=== PATIENT | male | born 1955 | race African-American/Black ===

== ENCOUNTER 2017-07-15 08:45 | Inpatient (IN) | payer BC, OTHER ==
[2017-07-15 09:19] VITALS: BMI 30.2
--- NOTE | 2017-07-17 14:48 | HP ---
DATE OF ADMISSION: 07/21/2017 HISTORY OF PRESENT ILLNESS: The patient is a 62-year-old male with one history of progressive left h ip and groin pain without injury. The pain is worse with ambulation and radiates towards his knee, p artial relief with Meloxicam. The pain is now interfering with day-to-day activities including walki ng, getting dressed, and working as a regional refrigerated cdl truck driver for [employer]. PAST MEDICAL HISTORY: The patient is otherwise in good health, has a history of hypertension and angel betes and previous gout. CURRENT MEDICATIONS: Include allopurinol, losartan, doxazosin, Meloxicam. ALLERGIES: He has no known allergies. FAMILY HISTORY/SOCIAL HISTORY/REVIEW OF SYSTEMS: Otherwise unremarkable. Patient does have degenera tive arthritis of his left knee, but these symptoms are not nearly as severe as his left hip. PHYSICAL EXAMINATION: GENERAL: Reveals a healthy male. HEENT: Unremarkable. NECK: Supple. CHEST: Clear. HEART: Regular rate and rhythm. ABDOMEN: Soft, nontender. RECTAL/GENITAL EXAMS: Deferred. EXTREMITIES: Pertinent findings related to the left hip. There is tenderness in the anterior left h ip and left groin. There are no masses. There is a left antalgic gait. Leg lengths are equal. The re is decreased range of motion of the left hip and groin pain with internal rotation. Neurovascular exam is intact. Straight leg raising is negative. LABORATORY AND X-RAY FINDINGS: X-rays of the left hip reveal severe DJD with no joint space remainin g with acetabular cyst formation with marked changes from previous x-rays. There are bopivvcs-ik-zio ere changes in the right hip with only slight joint space remaining. IMPRESSION: Degenerative arthritis, both hips, left greater than right. PLAN: Left total hip replacement. He may ultimately require a staged right total hip replacement. The nature of the surgery, length of recovery, and potential complications such as infection, loss of motion, incomplete relief, neurovascular injury, thromboembolic phenomenon, leg length discrepancy, possible transfusion, and need for revision have been discussed in detail.
[2017-07-21] MEDS ORDERED: Tranexamic Acid 1,000 MG/100 ML BAG ONE ×2 (05:57→11:13)
[2017-07-21] MEDS ORDERED: CEFAZOLIN/Water 2 GM/20 ML SYRINGE ONE (05:57)
[2017-07-21] MEDS ORDERED: Vancomycin HCl 1.5 GM in Sodium Chloride 0.9% 250 ML 300 ML IVPB SCH ×2 (06:00→18:00)
[2017-07-21] MEDS ORDERED: Midazolam HCl 2 mg/2 ml Vial ONE (06:18)
[2017-07-21] MEDS ORDERED: Fentanyl 100 MCG/2 ML VIAL ONE ×2 (06:18→06:51)
[2017-07-21] MEDS ORDERED: Ropivacaine 0.2% HCl/PF 20 ML ONE (06:50)
[2017-07-21] MEDS ORDERED: HYDROcodone/Acetaminophen 10/325 mg Tablet PO PRN ×4 (07:12→09:49)
[2017-07-21] MEDS ORDERED: diphenhydrAMINE 25 MG CAP PO PRN ×2 (07:15→09:49)
[2017-07-21] MEDS ORDERED: Promethazine HCl 25 MG SUPP PR PRN (07:15)
[2017-07-21] MEDS ORDERED: traMADol HCl 50 MG TAB PO PRN ×3 (07:15→09:49)
[2017-07-21] MEDS ORDERED: Naloxone HCl 0.4 mg/ml Vial IV PRN (07:15)
[2017-07-21] MEDS ORDERED: diphenhydrAMINE 50 MG/ML VIAL IM PRN (07:15)
[2017-07-21] MEDS ORDERED: Bupivacaine 0.25% 10 ML VIAL EPIDURAL PRN (07:15)
[2017-07-21] MEDS ORDERED: Eucerin (Mineral Oil/Petrolatum,White) 30 gm Jar TOP PRN (07:15)
[2017-07-21] MEDS ORDERED: Zolpidem Tartrate 5 MG TAB PO PRN ×2 (07:15→09:49)
[2017-07-21] MEDS ORDERED: Promethazine HCl 25 MG/ML VIAL IM PRN ×2 (07:15→07:23)
[2017-07-21] MEDS ORDERED: Naloxone HCl 0.4 mg/ml Vial IVP PRN (07:15)
[2017-07-21] MEDS ORDERED: fentaNYL Citrate/PF 1,250 MCG, Bupivacaine 25 ML in Sodium Chloride 0.9% 250 ML 200 ML EPIDURAL SCH (07:15)
[2017-07-21] MEDS ORDERED: Ondansetron HCl/PF 4 MG/2 ML Vial IVP PRN ×3 (07:15→09:49)
[2017-07-21] MEDS ORDERED: diphenhydrAMINE 50 MG/ML VIAL IVP PRN (07:15)
[2017-07-21] MEDS ORDERED: Promethazine HCl 25 MG/ML VIAL SLOW IVP PRN ×2 (07:23→09:49)
[2017-07-21] MEDS ORDERED: Hetastarch 6% 500 ML 500 ML ONE (08:57)
[2017-07-21] MEDS ORDERED: PHENYLEPHRINE-NS 100 MCG/ML 10 ML SYRINGE ONE ×2 (09:05→14:41)
[2017-07-21] MEDS ORDERED: Tranexamic Acid 1,000 MG in Sodium Chloride 0.9% 100 ML IVPB SCH ×2 (09:49→10:15)
[2017-07-21] MEDS ORDERED: Acetaminophen 325 MG TAB PO PRN (09:49)
[2017-07-21] MEDS ORDERED: Fentanyl 100 MCG/2 ML VIAL SLOW IVP PRN ×2 (09:49)
--- NOTE | 2017-07-21 11:15 | OP ---
DATE OF PROCEDURE: 07/21/2017 SURGEON: Angel Rivas M.D. WELDING MACHINE OPERATOR HELPER GAS: Farhan Campuzano PA-C. ANESTHESIA: General plus epidural. PREOPERATIVE DIAGNOSIS: Degenerative arthritis, left hip. POSTOPERATIVE DIAGNOSIS: Degenerative arthritis, left hip. PROCEDURES: Left total hip replacement with a 58 mm Jassi Tritanium outer shell with 36 mm diamete r X3 polyethylene insert with 2 acetabular screws 25 and 30 mm, and uncemented 3.5 Accolade femoral s tem with 36 mm +5 neck length Delta ceramic femoral head, both [place]. NARRATIVE REPORT: After satisfactory anesthesia was induced in supine position, the patient was plac ed in lateral decubitus position and this position held with the hip position device. Sequential com pression device was used on the non-operative leg throughout the procedure. The patient was prepped and draped in the routine manner. The hip was approached through a lateral curvilinear incision, sarah tered over the greater trochanter, carried down through subcutaneous tissues, and bleeding points con trolled with Bovie cautery. IT band and gluteal fascia were split in line with the skin incision. D irect lateral approach to the hip joint was accomplished by dividing the anterior third of the gluteu s medius minimus tendons with Bovie cautery and reflecting this as a single flap anteriorly and media lly. Anterior capsulectomy was performed and the hip dislocated anteriorly. There was marked degene rative arthritis of the hip with large areas of exposed bone. The femoral neck was osteotomized with an oscillating saw using trial prosthesis as a guide. Acetabulum was exposed and cleaned of all sof t tissue and debris and rim osteophytes. During removal of the large inferior and anterior rim osteo phytes, a small crack occurred in the very base of the fovea. This has not really appeared to affect the stability. I did bone graft this and supplemented fixation of the outer rim with screws and thi s appeared to give good stable fixation. The acetabulum was then reamed down to bleeding subchondral bone to a total of 57 mm. It was felt that a [place] Tritanium 58 mm outer shell could be placed in a press fit fashion. This was hammered in position. There was good fit and stability of the compon ent. Because of the small crack did occur, I elected to supplement the fixation with 2 acetabular sc rews placed to the dome of the outer shell with appropriate drilling and depth gauge measurements. O ne 30 and one 25 mm screws were used. There was good fit and stability of the component and the perm anent 36 mm diameter X3 polyethylene insert was then snapped into position and the proximal femur exp osed. It was opened with a box osteotome and then rasped in sequence to accept a 3.5 mm Accolade fem oral rasp. Trial reduction with 132 degree neck angle trunnion and the +5, 36 mm head gave appropria te size, fit, and stability. Hip was dislocated anteriorly and the trial components removed. The pe rmanent Accolade femoral stem was then hammered in position. There was again good fit and stability of the component. The permanent +5 neck length, 36 mm Delta ceramic femoral head was then placed on the trunnion and the hip again reduced and found to be stable. It was copiously irrigated with pulsa tile lavage. The abductors were repaired with #2 Vicryl, IT band and gluteal fascia were closed with interrupted 2-0 Vicryl and a running #2 Quill. Subcutaneous tissues were closed with running 0 Quil l suture and the skin closed with running subcuticular 3-0 Monoderm and SurgiSeal skin adhesive. Perico rile dressing was applied and the patient turned to supine position and a pillow placed between his l egs. Sequential compression device was applied to the operated leg and he was awakened and taken to recovery in stable condition. There were no apparent intraoperative complications. The estimated bl ood loss was 800 mL.
--- NOTE | 2017-07-21 12:13 | RAD ---
2 VIEWS LEFT HIP: Date: 07/21/17 HISTORY: Postop total hip replacement. COMPARISON: None available. FINDINGS: Postsurgical changes related to left total hip prosthesis are noted. No hardware complication seen. T here is no fracture or dislocation. Phleboliths overlie the pelvis. Subcutaneous emphysema is seen ab out the left hip. IMPRESSION: Postsurgical changes related to recent placement of a left total hip prosthesis. POS: [facility]
[2017-07-21] MEDS: Ketorolac Tromethamine 30 MG/ML VIAL IVP SCH ×3 (12:45→18:48)
[2017-07-21] MEDS: Sodium Chloride 0.9% 1,000 ML IV SCH (12:54)
[2017-07-21] MEDS ORDERED: Glycopyrrolate 0.2 MG/ML 5 ML SYRINGE ONE (14:41)
[2017-07-21] MEDS ORDERED: Propofol 200 MG/20 ML VIAL ONE (14:41)
[2017-07-21] MEDS ORDERED: Lidocaine 1% PF 5 ML VIAL ONE (14:41)
[2017-07-21] MEDS ORDERED: CEFAZOLIN 1 GM VIAL ONE (14:41)
[2017-07-21] MEDS ORDERED: Ondansetron HCl/PF 4 MG/2 ML Vial ONE (14:41)
[2017-07-21] MEDS ORDERED: ePHEDrine/0.9% NaCl/PF SYRINGE 50 mg/10 ml ONE (14:41)
[2017-07-21] MEDS ORDERED: Sterile Water 10 ML VIAL ONE (14:41)
[2017-07-21] MEDS: CEFAZOLIN/Water 2 GM/20 ML SYRINGE SLOW IVP SCH ×2 (15:09→21:27)
[2017-07-21] MEDS: Allopurinol 100 MG TAB PO SCH (21:27)
[2017-07-21] MEDS: Losartan 25 MG TAB PO SCH (21:27)
[2017-07-21] MEDS: Senokot S 8.6-50 MG TAB PO SCH (21:27)
[2017-07-21] MEDS: Ferrous Gluconate 324 MG TAB PO SCH (21:28)
[2017-07-21] MEDS: Doxazosin Mesylate 4 MG TAB PO SCH (21:29)
[2017-07-22] MEDS: Ketorolac Tromethamine 30 MG/ML VIAL IVP SCH ×7 (00:16→18:52)
[2017-07-22] MEDS: Sodium Chloride 0.9% 1,000 ML IV SCH ×3 (00:22→07:19)
[2017-07-22 05:34] LABS: Hemoglobin 8.6 g/dL (14.0-18.0); Mean Corpuscular HGB CONC 32.8 g/dL (32.0-36.0); Mean Corpuscular Hemoglobin 29.6 pg (27.0-31.0); Mean Corpuscular Volume 90.3 fl (80.0-94.0); Mean Platelet Volume 7.5 fL (7.4-10.4); Platelet Count 168 thou/uL (130-400); RBC Distribution Width 12.6 % (11.5-14.5); Red Blood Cell (RBC) Count 2.91 mill/uL (4.70-6.10); White Blood Cell (WBC) Count 7.7 thou/uL (4.8-10.8)
[2017-07-22] MEDS: Ferrous Gluconate 324 MG TAB PO SCH ×2 (07:33→21:06)
[2017-07-22] MEDS: Multivitamin W/ Minerals 1 TAB PO SCH (07:34)
[2017-07-22] MEDS: Senokot S 8.6-50 MG TAB PO SCH ×2 (07:34→21:07)
[2017-07-22] MEDS ORDERED: FLU VACC QS2017-18 36 mo. & older 0.5 ML SYRINGE IM ONE (09:00)
[2017-07-22] MEDS ORDERED: HYDROcodone/Acetaminophen 10/325 mg Tablet PO PRN ×2 (10:39→10:40)
[2017-07-22] MEDS ORDERED: HYDROcodone/Acetaminophen 5/325 mg Tablet PO PRN ×2 (10:42)
[2017-07-22] MEDS: Allopurinol 100 MG TAB PO SCH (21:05)
[2017-07-22] MEDS: Doxazosin Mesylate 4 MG TAB PO SCH (21:06)
[2017-07-22] MEDS: Losartan 25 MG TAB PO SCH (21:07)
[2017-07-23] MEDS: Ketorolac Tromethamine 30 MG/ML VIAL IVP SCH ×4 (00:26→13:46)
[2017-07-23] MEDS: Sodium Chloride 0.9% 1,000 ML IV SCH ×2 (02:32→10:48)
[2017-07-23 06:01] LABS: Hemoglobin 8.1 g/dL (14.0-18.0); Mean Corpuscular HGB CONC 32.7 g/dL (32.0-36.0); Mean Corpuscular Hemoglobin 29.6 pg (27.0-31.0); Mean Corpuscular Volume 90.7 fl (80.0-94.0); Mean Platelet Volume 7.8 fL (7.4-10.4); Platelet Count 166 thou/uL (130-400); RBC Distribution Width 12.7 % (11.5-14.5); Red Blood Cell (RBC) Count 2.75 mill/uL (4.70-6.10); White Blood Cell (WBC) Count 8.3 thou/uL (4.8-10.8)
[2017-07-23] MEDS: Ferrous Gluconate 324 MG TAB PO SCH (08:45)
[2017-07-23] MEDS: Multivitamin W/ Minerals 1 TAB PO SCH (08:46)
[2017-07-23] MEDS: Senokot S 8.6-50 MG TAB PO SCH (08:46)
[2017-07-23 09:14] VITALS: TEMP 98.4
[2017-07-23 13:23] VITALS: BP 100/68
== END 2017-07-23 14:15 | disposition home or self-care (01) | DRG 470 ==
LOC: SJJU 07-21 05:27
PROVIDERS: ADMIT Orthopaedic Surgery; ATTEND Orthopaedic Surgery
PROC: 0SRB04A Replacement of Left Hip Joint with Ceramic on Polyethylene Synthetic Substitute, Uncemented, Open Approach (ICD-10-PCS; principal; 2017-07-21)
PROC: 3E0T3BZ Introduction of Anesthetic Agent into Peripheral Nerves and Plexi, Percutaneous Approach (ICD-10-PCS; 2017-07-21)
DX: M16.0 Bilateral primary osteoarthritis of hip (principal); E11.9 Type 2 diabetes mellitus without complications; I10 Essential (primary) hypertension; M10.9 Gout, unspecified; F17.210 Nicotine dependence, cigarettes, uncomplicated
CPT/HCPCS: 36415; 85027; 90471; 90682; A4216; G0008; G8978-GP-CK; G8979-GP-CI; G8987-GO-CJ; G8988-GO-CI; J0690; J1885; J2001; J2250; J2405; J2704; J2795; J3010; J3370; J3490; J7050; Q2036

== ENCOUNTER 2017-07-15 08:46 | Outpatient (CLI) | payer BC, OTHER ==
[2017-07-15 11:16] LABS: Hemoglobin 13.9 g/dL (14.0-18.0); Mean Corpuscular HGB CONC 33.2 g/dL (32.0-36.0); Mean Corpuscular Hemoglobin 30.5 pg (27.0-31.0); Mean Corpuscular Volume 91.8 fl (80.0-94.0); Platelet Count 249 thou/uL (130-400); Red Blood Cell (RBC) Count 4.55 mill/uL (4.70-6.10); White Blood Cell (WBC) Count 4.9 thou/uL (4.8-10.8)
[2017-07-15 11:20] LABS: Bilirubin Negative (Negative); Blood, Urine Negative (Negative); Clarity CLEAR (Clear); Glucose, Urine (Dipstick) Negative (Negative); Leukocyte Negative (Negative); Nitrite Negative (Negative); Protein, Urine (Dipstick) Negative (Neg-Trace); Specific Gravity, Urine 1.025 (1.002-1.036); pH, Urine 5.5 (5.0-9.0)
[2017-07-15 11:22] LABS: Bacteria/HPF None Seen HPF (None Seen); Hyaline Casts/LPF 0-3 HYALINE CAST LPF (0-3 Hyaline); Squamous Epithelial None Seen HPF (0-3); WBC/HPF 0-3 HPF (0-3)
[2017-07-15 11:23] LABS: PTT 33.7 SEC (22.9-36.1); Prothrombin Time 13.5 SEC (12.0-14.7)
[2017-07-15 11:28] LABS: Anion Gap 13 mmol/L (10-20); BUN (Urea Nitrogen) 14 mg/dL (8.4-25.7); Calc. Creatinine Clearance 0 mL/min (70-130); Carbon Dioxide 29 mmol/L (23-31); Chloride 106 mmol/L (98-107); Estimated GFR-MDRD Greater than 90; Glucose 84 mg/dL (80-115); Potassium 4.6 mmol/L (3.5-5.1); Sodium 143 mmol/L (136-145)
--- NOTE | 2017-07-17 00:48 | EKG ---
Test Reason : Blood Pressure : / mmHG Vent. Rate : 063 BPM Atrial Rate : 063 BPM P-R Int : 152 ms QRS Dur : 084 ms QT Int : 380 ms P-R-T Axes : 068 041 044 degrees QTc Int : 388 ms Normal sinus rhythm with sinus arrhythmia Normal ECG No previous ECGs available Confirmed by DR. Hai MILLER MD ([id number]) on 07/17/2017 12:48:13 AM Referred By: JUANA Confirmed By:DR. Hai MILLER MD
== END 2017-07-15 08:47 | disposition home or self-care (01) ==
LOC: LABBT 08:46
PROVIDERS: ATTEND Orthopaedic Surgery
DX: Z01.818 Encounter for other preprocedural examination (principal); M16.0 Bilateral primary osteoarthritis of hip
CPT/HCPCS: 80048; 81001; 85027; 85610; 85730; 86850; 86900; 86901; 87081; 93005; 93010

== ENCOUNTER 2018-07-09 07:30 | Outpatient (CLI) | payer BC, OTHER ==
[2018-07-09 13:54] LABS: #Eosinphils 0.2 thou/uL (0.0-0.7); #Lymphocytes 2.5 thou/uL (1.20-3.40); #Monocytes 0.5 thou/uL (0.11-0.59); #Neutrophils 3.5 thou/uL (1.40-6.50); %Basophils 0.6 % (0.0-1.0); %Eosinophils 3.6 % (0.0-10.0); %Lymphocytes 36.7 % (21.0-51.0); %Monocytes 7.9 % (0.0-10.0); %Neutrophils 51.3 % (42.0-75.0); Hemoglobin 12.7 g/dL (14.0-18.0); INR-International Normal Ratio 1.1; Mean Corpuscular HGB CONC 33.2 g/dL (32.0-36.0); Mean Corpuscular Hemoglobin 29.4 pg (27.0-31.0); Mean Corpuscular Volume 88.6 fL (78.0-98.0); Mean Platelet Volume 8.1 fL (7.4-10.4); Platelet Count 240 thou/uL (130-400); Prothrombin Time 13.8 SEC (12.0-14.7); RBC Distribution Width 13.3 % (11.5-14.5); Red Blood Cell (RBC) Count 4.34 mill/uL (4.70-6.10); White Blood Cell (WBC) Count 6.7 thou/uL (4.8-10.8)
[2018-07-09 14:04] LABS: Anion Gap 14 mmol/L (10-20); BUN (Urea Nitrogen) 17 mg/dL (8.4-25.7); Calc. Creatinine Clearance 0 mL/min (70-130); Calcium 9.8 mg/dL (7.8-10.44); Carbon Dioxide 23 mmol/L (23-31); Chloride 106 mmol/L (98-107); Estimated GFR-MDRD Greater than 90; Glucose 84 mg/dL (80-115); Potassium 4.3 mmol/L (3.5-5.1); Sodium 139 mmol/L (136-145)
[2018-07-09 14:05] LABS: Bilirubin Negative (Negative); Blood, Urine Negative (Negative); Clarity CLEAR (Clear); Glucose, Urine (Dipstick) Negative (Negative); Leukocyte Trace (Negative); Nitrite Negative (Negative); Protein, Urine (Dipstick) Negative (Neg-Trace); Specific Gravity, Urine 1.013 (1.002-1.036)
[2018-07-09 14:10] LABS: Bacteria/HPF None Seen HPF (None Seen); Hyaline Casts/LPF 0-3 HYALINE CAST LPF (0-3 Hyaline); RBC/HPF 0-3 HPF (0-3); Squamous Epithelial None Seen HPF (0-3)
--- NOTE | 2018-07-09 17:16 | EKG ---
Test Reason : Blood Pressure : / mmHG Vent. Rate : 058 BPM Atrial Rate : 058 BPM P-R Int : 156 ms QRS Dur : 086 ms QT Int : 382 ms P-R-T Axes : 058 024 038 degrees QTc Int : 374 ms Sinus bradycardia Cannot rule out Anterior infarct , age undetermined Abnormal ECG When compared with ECG of 15-JUL-2017 10:12, No significant change was found Confirmed by DR. Jenna CULLEN ([id number]) on 07/09/2018 5:16:11 PM Referred By: JUANA Confirmed By:DR. Jenna CULLEN
== END 2018-07-09 07:31 | disposition home or self-care (01) ==
LOC: LABBT 07:30
PROVIDERS: ATTEND Orthopaedic Surgery
DX: Z01.818 Encounter for other preprocedural examination (principal); M16.11 Unilateral primary osteoarthritis, right hip
CPT/HCPCS: 80048; 81001; 85025; 85610; 87081; 93005; 93010

== ENCOUNTER 2018-07-09 13:15 | Inpatient (IN) | payer BC, OTHER ==
--- NOTE | 2018-07-16 13:24 | HP ---
HISTORY OF PRESENT ILLNESS: The patient is a 63-year-old black male, who has had progressive problems with his right hip for several years, which has become much worse over the past several months. There has been no injury. He had progressive problems despite rest, restriction of activities, anti-inflammatory medication, then use of a cane. The pain is now interfering with day-to-day activities including walking, sleeping, getting dressed, and working. PAST HISTORY: The patient had left total hip replacement approximately 1 year ago with good results. He is otherwise in good health. Has a history of hypertension and borderline diabetes. CURRENT MEDICATIONS: Include; 1. Tramadol. 2. Doxazosin. 3. Pantoprazole. 4. Allopurinol. 5. Meloxicam. 6. Losartan. 7. Finasteride. ALLERGIES: HE HAS NO KNOWN ALLERGIES. 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 Otherwise unremarkable. FAMILY HISTORY: Otherwise unremarkable. REVIEW OF SYSTEMS: Otherwise unremarkable. PHYSICAL EXAMINATION: GENERAL: Reveals a healthy male. HEENT: Unremarkable. NECK: Supple. CHEST: Clear. HEART: Regular and rhythm. ABDOMEN: Soft, nontender. RECTAL: Deferred. GENITAL: Deferred. EXTREMITIES: Pertinent findings were related to the right hip. Leg lengths are equal. There is tenderness in the right anterior hip and groin area. There is a right antalgic gait. There is decreased range of motion of the right hip and groin pain with internal rotation. NEUROVASCULAR: Intact. DIAGNOSTIC STUDIES: X-rays of the pelvis and right hip revealed good alignment of the left total hip components and severe degenerative arthritis of the right hip with no joint space remaining with marked change from previous x-rays. IMPRESSION: 1. Progressive degenerative arthritis, right hip. 2. Status post left total hip replacement. 3. History of hypertension. 4. History of borderline diabetes. PLAN: Right total hip replacement. The nature of the surgery, length of recovery, and potential complications such as infection, loss of motion, incomplete relief, neurovascular injury, thromboembolic phenomenon, leg length discrepancy, possible transfusion, and need for revision have been discussed in detail. Job ID: [id number]
[2018-07-20] MEDS ORDERED: Vancomycin HCl 1.5 GM in Sodium Chloride 0.9% 250 ML 300 ML IVPB SCH ×2 (06:15→18:30)
[2018-07-20] MEDS ORDERED: Midazolam HCl 2 mg/2 ml Vial ONE (06:35)
[2018-07-20] MEDS ORDERED: Fentanyl 100 MCG/2 ML VIAL ONE ×2 (06:35→11:13)
[2018-07-20] MEDS ORDERED: Tranexamic Acid 1,000 MG/10 ML VIAL ONE ×2 (06:38→11:26)
[2018-07-20] MEDS ORDERED: Sodium Chloride 0.9% 100 ML ONE (06:38)
[2018-07-20] MEDS ORDERED: CEFAZOLIN 2 GM/50 ML BAG ONE (06:38)
[2018-07-20] MEDS ORDERED: Naloxone HCl 0.4 mg/ml Vial IVP PRN (08:15)
[2018-07-20] MEDS ORDERED: Bupivacaine 0.25% 10 ML VIAL EPIDURAL PRN (08:15)
[2018-07-20] MEDS ORDERED: traMADol HCl 50 MG TAB PO PRN ×3 (08:15→11:58)
[2018-07-20] MEDS ORDERED: Naloxone HCl 0.4 mg/ml Vial IV PRN (08:15)
[2018-07-20] MEDS ORDERED: Hydrocerin (Eucerin) Cream 120 gm Jar TOP PRN (08:15)
[2018-07-20] MEDS ORDERED: diphenhydrAMINE 25 MG CAP PO PRN ×2 (08:15→11:58)
[2018-07-20] MEDS ORDERED: HYDROcodone/Acetaminophen 5/325 mg Tablet PO PRN (08:15)
[2018-07-20] MEDS ORDERED: Promethazine HCl 25 MG SUPP PR PRN (08:15)
[2018-07-20] MEDS ORDERED: diphenhydrAMINE 50 MG/ML VIAL IM PRN (08:15)
[2018-07-20] MEDS ORDERED: Zolpidem Tartrate 5 MG TAB PO PRN ×2 (08:15→11:58)
[2018-07-20] MEDS ORDERED: diphenhydrAMINE 50 MG/ML VIAL IVP PRN (08:15)
[2018-07-20] MEDS ORDERED: Ondansetron PF 4 MG/2 ML Vial IVP PRN ×2 (08:15→11:58)
[2018-07-20] MEDS ORDERED: Promethazine HCl 25 MG/ML VIAL IM PRN ×2 (08:15→08:44)
[2018-07-20] MEDS ORDERED: Acetaminophen 1,000 MG in Premix Bag 1 BAG IVPB PRN (08:16)
[2018-07-20] MEDS ORDERED: Promethazine HCl 25 MG/ML VIAL SLOW IVP PRN ×2 (08:44→11:58)
[2018-07-20] MEDS ORDERED: Ondansetron HCl/PF 4 MG/2 ML Vial IVP PRN (08:44)
[2018-07-20] MEDS ORDERED: Fentanyl/Bupivacaine 100 ML EPIDURAL ONE (10:57)
[2018-07-20] MEDS ORDERED: Tranexamic Acid 1,000 MG in Sodium Chloride 0.9% 100 ML IVPB SCH ×2 (11:00→11:58)
[2018-07-20] MEDS ORDERED: Fentanyl 100 MCG/2 ML VIAL SLOW IVP PRN ×2 (11:58)
[2018-07-20] MEDS ORDERED: CEFAZOLIN/Water 2 GM/20 ML SYRINGE SLOW IVP SCH (11:58)
[2018-07-20] MEDS ORDERED: HYDROcodone/Acetaminophen 10/325 mg Tablet PO PRN ×2 (11:58)
[2018-07-20] MEDS ORDERED: Acetaminophen 325 MG TAB PO PRN (11:58)
--- NOTE | 2018-07-20 12:11 | OP ---
DATE OF PROCEDURE: 07/20/2018 MINE EXPLORATION ENGINEER: Asa Urena MD ANESTHESIA: General plus epidural. PREOPERATIVE DIAGNOSIS: Degenerative arthritis, right hip. POSTOPERATIVE DIAGNOSIS: Degenerative arthritis, right hip. PROCEDURES: 1. Right total hip replacement with uncemented Jassi Trident PSL acetabular component, 58 mm with X3 polyethylene insert, and uncemented [place] Accolade femoral stem, #3 with 132 degree neck angle trunnion with 36 mm delta ceramic femoral head standard neck length. DESCRIPTION OF PROCEDURE: After satisfactory anesthesia was induced, sequential compression device was placed on the nonoperative leg throughout the procedure. The patient was placed in the left decubitus position and this position was held with hip positioning device. The patient's right hip was then prepped and draped in routine sterile fashion. The hip was approached through a lateral curvilinear incision centered over the greater trochanter, carried down through subcutaneous tissues and bleeding points controlled with the Bovie cautery. IT band and gluteal fascia were split in line with the skin incision. A direct lateral approach to the hip prominence was accomplished by dividing the anterior third of the gluteus medius and minimus tendons with the Bovie cautery and reflecting this as a single flap anteromedially along with the vastus lateralis. Femoral neck was osteotomized using a trial prosthesis as a guide and the acetabulum was exposed. There was marked degenerative arthritis of the hip. The acetabulum was cleaned of all soft tissue and debris and then reamed down to bleeding subchondral bone in sequence with prior reamers for a total of 58 mm. It was felt that a Trident PSL 58 mm outer shell could be placed in a press-fit fashion. The permanent component was then hammered in position. There were good fit and stability of the shell. There were no significant osteophytes. The X3 polyethylene liner was snapped in position and the proximal femur was exposed. It was opened with a box osteotome and then rasped in sequence to accept a #3 Accolade femoral stem. Trial reduction with 132 degree neck angle trunnion and the 36 mm centered neck length head. Femoral head gave appropriate size, fit, and stability. The hip was again dislocated anteriorly and the trial components were removed. The permanent #3 Accolate femoral stem was then hammered in position. There were again good fit and stability of the component. The permanent standard neck length 36 mm delta ceramic head was then placed on the trunnion and the hip again reduced and found to be stable. The hip was copiously irrigated with pulsatile lavage. The abductors were repaired with interrupted # 2 Vicryl. IT-band and gluteal fascia were closed with interrupted #2 Vicryl and a running #2 Quill. Subcutaneous tissues were closed with a running 0 Quill suture and the skin was closed with running subcuticular 3-0 Monoderm and SurgiSeal skin adhesive. Sterile dressing was applied and the patient turned to supine position and a pillow placed between his legs. Sequential compression devices were applied to his operate leg. He was awakened, taken to the Recovery Room in stable condition. There were no apparent intraoperative complications. The estimated blood loss was 350 mL. Job ID: [id number] [facility]
[2018-07-20] MEDS ORDERED: Dextrose 5% in Water 1,000 ML IV PRN (13:13)
[2018-07-20] MEDS ORDERED: Dextrose 50% Abboject 50 ML SYRINGE SLOW IVP PRN (13:13)
[2018-07-20] MEDS ORDERED: HumaLOG 300 UNITS/3 ML VIAL SC PRN (13:13)
[2018-07-20] MEDS: Ketorolac Tromethamine 30 MG/ML VIAL IVP SCH ×5 (14:08→23:29)
--- NOTE | 2018-07-20 14:30 | RAD ---
TWO VIEWS RIGHT HIP: Date: 07-20-18 History: Post op changes right hip. FINDINGS: There are post-operative changes related to right total hip prosthesis. No hardware complication is a ppreciated. No fracture is identified. There is mild subcutaneous soft tissue swelling with subcutane ous emphysema lateral to the right hip. The acetabular component is mostly obscured on the crosstable lateral view. No other findings. IMPRESSION: Post-surgical changes related to right total hip prosthesis. POS: [facility]
[2018-07-20] MEDS ORDERED: Glycopyrrolate 0.2 MG/ML 5 ML SYRINGE ONE (14:46)
[2018-07-20] MEDS ORDERED: PROPOFOL 200 MG/20 ML VIAL ONE (14:46)
[2018-07-20] MEDS ORDERED: Ketorolac Tromethamine 30 MG/ML VIAL ONE (14:46)
[2018-07-20] MEDS ORDERED: Lidocaine 1% PF 5 ML VIAL ONE (14:46)
[2018-07-20] MEDS ORDERED: Rocuronium Bromide 10 MG/ML (10ML VIAL) ONE (14:46)
[2018-07-20] MEDS ORDERED: ePHEDrine/0.9% NaCl/PF SYRINGE 50 mg/10 ml ONE (14:46)
[2018-07-20] MEDS ORDERED: Ondansetron PF 4 MG/2 ML Vial ONE (14:46)
[2018-07-20] MEDS ORDERED: PHENYLEPHRINE-NS 100 MCG/ML 10 ML SYRINGE ONE (14:46)
[2018-07-20] MEDS: Sodium Chloride 0.9% 1,000 ML IV SCH ×2 (18:08→22:59)
[2018-07-20] MEDS: CEFAZOLIN 2 GM/50 ML-DEXTROSE 2 GM in Premix Bag 1 BAG IVPB SCH (18:10)
[2018-07-20] MEDS: Aspirin 81 mg Enteric Coated Tablet PO SCH (21:06)
[2018-07-20] MEDS: Doxazosin Mesylate 4 MG TAB PO SCH (21:06)
[2018-07-20] MEDS: Losartan 25 MG TAB PO SCH (21:06)
[2018-07-20] MEDS: Allopurinol 100 MG TAB PO SCH (21:06)
[2018-07-21] MEDS: CEFAZOLIN 2 GM/50 ML-DEXTROSE 2 GM in Premix Bag 1 BAG IVPB SCH (00:04)
[2018-07-21] MEDS: Fentanyl/Bupivacaine 100 ML EPIDURAL SCH ×2 (03:05→19:54)
--- NOTE | 2018-07-21 04:08 | HP ---
PCP: Myself, Dr. Da Saul. CONSULTING SERVICES: Orthopedic Surgery for medical management. HISTORY OF PRESENT ILLNESS: The patient was admitted for right total hip replacement. The patient has undergone left total hip replacement prior with Dr. Rousseau and has been brought in for continuation and progression of arthritis. The patient is postoperative at the time of exam, states he has had no pain as he has epidural at this point in time and has tolerated well. Following bolus of the epidural, patient did have a blood pressure drop per nursing staff, which was improved following a small bolus of IV fluids. The patient has no complaints at bedside, has already tolerated sub diet liquids in the postoperative period on the floor and no questions for me this evening. On review of vital signs on arrival to floor, temperature of 97.3, pulse of 53, respiratory rate of 16, oxygen saturation 96% on room air, blood pressure 86/50, which improved post bolus to 110/72. Blood glucose is 144 and 106. PAST MEDICAL HISTORY: He has gastroesophageal reflux disease, osteoarthritis, hypertension, type 2 diabetes currently diet controlled, and diagnosis of gout. SURGICAL HISTORY: He had a left total hip replacement one year ago. ALLERGIES: NO KNOWN DRUG ALLERGIES. HOME MEDICATIONS: Include: 1. Tramadol. 2. Doxazosin. 3. Pantoprazole. 4. Allopurinol. 5. Meloxicam. 6. Losartan. 7. Finasteride. SOCIAL HISTORY: Patient currently nonsmoker. IMMUNIZATION: Received his pneumonia shot on admission today. REVIEW OF SYSTEMS: No fevers, no chills. No cough. No congestion. No runny nose. No chest pain. No shortness of breath. No current hip pain. No incisional bleeding. No abdominal pain. No constipation. No diarrhea. No confusion. No headaches. PHYSICAL EXAMINATION: GENERAL: Patient is alert, oriented x3. No focal deficits. Speech is normal. HEENT: Oral mucosa is moist. NECK: Supple. HEART: Regular rate and rhythm. No murmurs auscultated. LUNGS: Clear to auscultation bilaterally. No rubs or wheezes. ABDOMEN: Soft and nontender. Positive bowel sounds throughout. EXTREMITIES: Without cyanosis or edema. Right hip with dressing intact. No bleeding through. NEURO: The patient is alert and oriented x3. No focal deficits. Speech is normal. ASSESSMENT AND PLAN: 1. Status post right hip replacement for osteoarthritis. Primary management per orthopedic team. 2. Hypertension and diet-controlled diabetes. Following up on sliding scale insulin and agree with continuation of patient's home medication. Agree with PPI for his prior gastroesophageal reflux disease symptoms and postoperative. We will continue to follow along while patient is inpatient. The patient is likely to start physical therapy shortly and plans to return home. Job ID: [id number]
[2018-07-21] MEDS: Ketorolac Tromethamine 30 MG/ML VIAL IVP SCH ×7 (05:19→23:39)
[2018-07-21 06:37] LABS: Hemoglobin 10.5 g/dL (14.0-18.0); Mean Corpuscular HGB CONC 32.5 g/dL (32.0-36.0); Mean Corpuscular Hemoglobin 29.4 pg (27.0-31.0); Mean Corpuscular Volume 90.4 fL (78.0-98.0); Mean Platelet Volume 8.4 fL (7.4-10.4); Platelet Count 192 thou/uL (130-400); RBC Distribution Width 13.2 % (11.5-14.5); Red Blood Cell (RBC) Count 3.58 mill/uL (4.70-6.10); White Blood Cell (WBC) Count 8.2 thou/uL (4.8-10.8)
[2018-07-21 06:55] LABS: ALT (SGPT) 14 U/L (8-55); AST (SGOT) 22 U/L (5-34); Albumin 3.4 g/dL (3.4-4.8); Alkaline Phosphatase 67 U/L (40-150); Anion Gap 12 mmol/L (10-20); BUN (Urea Nitrogen) 13 mg/dL (8.4-25.7); Bilirubin, Total 0.8 mg/dL (0.2-1.2); Calc. Creatinine Clearance 124 mL/min (70-130); Calcium 8.9 mg/dL (7.8-10.44); Carbon Dioxide 22 mmol/L (23-31); Chloride 107 mmol/L (98-107); Estimated GFR-MDRD Greater than 90; Globulin 2.6 g/dL (2.4-3.5); Glucose 107 mg/dL (80-115); Potassium 4.1 mmol/L (3.5-5.1); Sodium 137 mmol/L (136-145)
[2018-07-21] MEDS: HYDROcodone/Acetaminophen 5/325 mg Tablet PO PRN (08:22)
[2018-07-21] MEDS: Senokot S 8.6-50 MG TAB PO SCH ×2 (08:25→21:14)
[2018-07-21] MEDS: Ferrous Gluconate 324 MG TAB PO SCH ×2 (08:26→21:14)
[2018-07-21] MEDS: Multivitamin W/ Minerals 1 TAB PO SCH (08:26)
[2018-07-21] MEDS: Aspirin 81 mg Enteric Coated Tablet PO SCH ×2 (08:27→21:14)
[2018-07-21] MEDS: Sodium Chloride 0.9% 1,000 ML IV SCH ×2 (09:02→18:59)
--- NOTE | 2018-07-21 09:18 | PRG ---
DATE OF SERVICE: 07/21/2018 HISTORY OF PRESENT ILLNESS: The patient was unable to sleep more than 2 hours last night. His pain following a bolus with epidural that he has zero pain rating it, slowly crept in with a dull ache. He was unable to fully rest on his right side even though nursing staff helped with position changes and ice overnight. He felt more comfortable in chair, but was unable to fully fall asleep well there. Otherwise, he has no acute complaints. Has no reported fevers. No cough. Still has Hernandez catheter in. LABORATORY DATA: Hemoglobin postoperatively is 10.5. Creatinine was 0.96, sodium 137, potassium of 4.1, blood sugars 107 to 144 in last 12 hours. PHYSICAL EXAMINATION: VITAL SIGNS: This morning, temperature of 98.5, pulse of 83, respiratory rate of 16, oxygen saturation 95% on room air, and blood pressure 106/68. GENERAL: The patient is alert and oriented, in no acute distress. HEAD: Normocephalic and atraumatic. Extraocular movements are intact. Sclerae are white. Oral mucosa is moist. NECK: Supple. HEART: Regular rate and rhythm. No murmurs auscultated. LUNGS: Clear to auscultation bilaterally. No rubs or wheezes. ABDOMEN: Soft and nontender. Positive bowel sounds throughout. EXTREMITIES: Right hip with intact dressing. Lower extremities without cyanosis or edema. NEUROLOGIC: The patient is alert and oriented x3. No focal deficits. Speech is normal. ASSESSMENT: 1. Right total hip replacement, status post operative day 1. 2. Diabetes type 2, diet controlled. 3. Hypertension. 4. Gastroesophageal reflux disease. PLAN: Continue with home medications and sliding scale insulin. Currently, the patient's blood sugars are controlled. We will continue to follow along. The patient requesting possible sleep aid for tonight. We will cover him for that and continue to follow while inpatient. Job ID: [id number]
[2018-07-21] MEDS ORDERED: Acetaminophen 500 MG TAB PO PRN (12:00)
[2018-07-21 17:04] VITALS: BMI 33.7
[2018-07-21] MEDS ORDERED: Melatonin 3 MG TAB PO SCH (21:00)
[2018-07-21] MEDS: Allopurinol 100 MG TAB PO SCH (21:14)
[2018-07-21] MEDS: Losartan 25 MG TAB PO SCH (21:15)
[2018-07-21] MEDS: Doxazosin Mesylate 4 MG TAB PO SCH (21:15)
[2018-07-22] MEDS: Sodium Chloride 0.9% 1,000 ML IV SCH (02:34)
[2018-07-22] MEDS: Ketorolac Tromethamine 30 MG/ML VIAL IVP SCH ×2 (05:09→06:34)
[2018-07-22] MEDS: Ferrous Gluconate 324 MG TAB PO SCH (08:50)
[2018-07-22] MEDS: Senokot S 8.6-50 MG TAB PO SCH (08:50)
[2018-07-22] MEDS: Aspirin 81 mg Enteric Coated Tablet PO SCH (08:51)
[2018-07-22] MEDS: Multivitamin W/ Minerals 1 TAB PO SCH (08:51)
[2018-07-22] MEDS: HYDROcodone/Acetaminophen 5/325 mg Tablet PO PRN (09:44)
[2018-07-22 12:31] VITALS: BP 114/75; TEMP 97.9
== END 2018-07-22 13:54 | disposition home or self-care (01) | DRG 470 ==
LOC: SURG A 07-20 05:48 → SJJU 07-20 12:07
PROVIDERS: ADMIT Orthopaedic Surgery; ATTEND Orthopaedic Surgery
PROC: 0SR903A Replacement of Right Hip Joint with Ceramic Synthetic Substitute, Uncemented, Open Approach (ICD-10-PCS; principal; 2018-07-20)
DX: M16.11 Unilateral primary osteoarthritis, right hip (principal); K21.9 Gastro-esophageal reflux disease without esophagitis; E11.9 Type 2 diabetes mellitus without complications; M10.9 Gout, unspecified; I10 Essential (primary) hypertension; Z96.642 Presence of left artificial hip joint
CPT/HCPCS: 36415; 36416; 80053; 85027; 90471; 90732; G0009; J0131; J1885; J2001; J2250; J2405; J2704; J3010; J3370; J7050

== ENCOUNTER 2019-07-27 07:25 | Outpatient (CLI) | payer OTHER ==
[2019-07-27 08:26] LABS: Estimated GFR-MDRD - POC Greater than 90
--- NOTE | 2019-07-27 09:02 | CT ---
CT Abdomen Pelvis W WO con: 07/27/2019 12:00 AM CLINICAL HISTORY: Microhematuria. Kidney stones. TECHNIQUE: Multiple contiguous axial images were obtained and a CT of the abdomen and pelvis without and with IV contrast. Postcontrast images were obtained in the nephrographic and excretory phases. Sagittal and coronal reformats were performed. COMPARISON: None. FINDINGS: Kidneys and Urinary Tract: Right kidney and ureter: Tiny 2 mm nonobstructing calcification No hydronephrosis or hydroureter. No renal mass or other lesions. No urothelial lesions: no filling defect, dilation, stricture or wall thickening. 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 Left kidney and ureter: Multiple nonobstructing calcifications measuring up to 10 mm in size. There i s slight prominence of the calyces in the midportion of the left kidney near the calcification. The other calyces and renal pelvis are normal in caliber. Multiple left renal cysts measuring up to 3.1 c m in size. No urothelial lesions: no filling defect, dilation, stricture or wall thickening. Urinary bladder: Limited evaluation. Normal, no calculi, mass or other lesions. Remainder of Abdomen and Pelvis: Liver: Normal. Gallbladder and biliary system: Normal. No CT evident gallstones. No biliary ductal dilatation. Spleen: Normal. Pancreas: Normal. Adrenal glands: Normal. GI tract: Normal. Abdominal aorta and its major branches: Normal. No aneurysm. Peritoneum/retroperitoneum: Normal. No ascites. No adenopathy. Pelvic structures: Normal. No pelvic lymphadenopathy. Body wall and musculoskeletal: Tiny fat-containing umbilical hernia. Bilateral hip prostheses produce streak artifact limiting evaluation of the pelvis. Visualized lower thorax: Normal. No pulmonary parenchymal mass or pleural effusion. IMPRESSION: 1. Bilateral nonobstructing renal calculi 2. Left renal cysts
== END 2019-07-27 07:26 | disposition home or self-care (01) ==
LOC: BICCT 07:25
PROVIDERS: ATTEND Urology
DX: R31.29 Other microscopic hematuria (principal); N28.1 Cyst of kidney, acquired; N20.0 Calculus of kidney; Z87.442 Personal history of urinary calculi
CPT/HCPCS: 74178; 82565

== ENCOUNTER 2020-05-23 08:24 | Outpatient (CLI) | payer OTHER ==
--- NOTE | 2020-05-23 08:48 | RAD ---
EXAM: Single view of the abdomen HISTORY: Abdominal pain COMPARISON: None FINDINGS: Single view of the abdomen shows a nonspecific, nonobstructive bowel gas pattern. 1.4 cm ca lcification projects over the left renal shadow. A calcification in the right pelvis is likely a phlebolith. Degenerative changes are seen in the spine. The patient has bilateral hip arthroplasties. IMPRESSION: Left nephrolithiasis
== END 2020-05-23 08:25 | disposition home or self-care (01) ==
LOC: BICRAD 08:24
PROVIDERS: ATTEND Urology
DX: N20.0 Calculus of kidney (principal); R97.20 Elevated prostate specific antigen [PSA]
CPT/HCPCS: 36415; 74018; 80048; 81001; 83036; 87086

== ENCOUNTER 2020-07-05 08:01 | Outpatient (CLI) | payer OTHER ==
--- NOTE | 2020-07-05 11:29 | RAD ---
KUB: Date: 07/05/2020 HISTORY: Renal calculi. COMPARISON: 05/23/2020 study. FINDINGS: Left-sided renal calculus measuring in the 14.0 mm range is stable. No right-sided calculi seen. Bila teral hip prosthesis and arthritic changes of the spine are noted. IMPRESSION: Left-sided renal calculus. POS: [facility]
== END 2020-07-05 08:02 | disposition home or self-care (01) ==
LOC: BICRAD 08:01
PROVIDERS: ATTEND Urology
DX: N20.0 Calculus of kidney (principal); R97.20 Elevated prostate specific antigen [PSA]; E11.9 Type 2 diabetes mellitus without complications; M10.9 Gout, unspecified; N40.1 Benign prostatic hyperplasia with lower urinary tract symptoms; R31.29 Other microscopic hematuria
CPT/HCPCS: 36415; 74018; 80048; 81001; 84153; 84550; 87086

== ENCOUNTER 2020-08-23 08:37 | Day surgery (SDC) | payer OTHER ==
[2020-08-22 09:59] VITALS: BMI 35.3
[2020-08-23] MEDS ORDERED: Rocuronium Bromide 10 MG/ML (10ML VIAL) ONE (09:04)
[2020-08-23] MEDS ORDERED: Lidocaine 1% PF 5 ML VIAL ONE (09:04)
[2020-08-23] MEDS ORDERED: Ondansetron PF 4 MG/2 ML Vial ONE (09:04)
[2020-08-23] MEDS ORDERED: Glycopyrrolate 0.2 MG/ML 5 ML SYRINGE ONE (09:04)
[2020-08-23] MEDS ORDERED: ePHEDrine 50 MG/ML VIAL ONE (09:04)
[2020-08-23] MEDS ORDERED: PROPOFOL 200 MG/20 ML VIAL ONE (09:04)
[2020-08-23] MEDS ORDERED: Dexamethasone 20 MG/5 ML VIAL ONE (09:04)
[2020-08-23] MEDS ORDERED: Levofloxacin 500 mg/D5W 100 ml Premix Bag ONE (09:36)
[2020-08-23] MEDS ORDERED: Iothalamate Meglumine 60% 50 ML VIAL FS ONE (11:06)
[2020-08-23] MEDS ORDERED: Fentanyl 100 MCG/2 ML VIAL ONE ×3 (11:10→14:11)
[2020-08-23] MEDS ORDERED: SUGAMMADEX SODIUM 200 MG/2 ML VIAL ONE (13:01)
--- NOTE | 2020-08-23 13:26 | RAD ---
Exam: Intraoperative fluoroscopy for retrograde IVP FINDINGS: 16 images are submitted for dictation. Is retrograde opacification left or right intrarenal collecting system. 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 There is a solitary stent placed in the left ureter and left renal pelvis. IMPRESSION: Intraoperative fluoroscopy as above Transcribed Date/Time: 08/23/2020 1:32 PM
[2020-08-23] MEDS ORDERED: Ketorolac Tromethamine 30 MG/ML VIAL ONE (13:43)
[2020-08-23] MEDS ORDERED: Phenazopyridine HCl 100 MG TAB ONE (13:43)
--- NOTE | 2020-08-23 15:07 | OP ---
DATE OF PROCEDURE: 08/23/2020 PRIMARY CARE PHYSICIAN: Dr. Mathew. PREOPERATIVE DIAGNOSES: 1. A 65-year-old male with history of large left renal calculi, 1.4 to 1.5 cm on KUB; left lower pole 5 mm papilla based stone adjacent to the large stone, Hounsfield unit of the stone is very dense measuring over 1100; the patient with morbid obesity with stone to skin distance 17 cm. 2. Right tiny three punctate renal calculi. 3. Right duplicated ureter. 4. BPH. POSTOPERATIVE DIAGNOSES: 1. A 65-year-old male with history of large left renal calculi, 1.4 to 1.5 cm on KUB; left lower pole 5 mm papilla based stone adjacent to the large stone, [place]ounsfield unit of the stone is very dense measuring over 1100; the patient with morbid obesity with stone to skin distance 17 cm. 2. Right tiny three punctate renal calculi. 3. Right duplicated ureter. 4. BPH. PROCEDURES PERFORMED: Cystoscopy, bilateral retrograde pyelogram, dilation of the left distal ureter, left ureteroscopy, laser lithotripsy, pyeloscopy, basket extraction of multiple stones, modifier 22 due to large stones, and density , 6 x 30 double-J ureteral stent with distal tail in situ. ANESTHESIA: General. COMPLICATIONS: None apparent. DISPOSITION: To recovery room in stable condition. SPECIMEN: Stone for chemical analysis. INTRAOPERATIVE FINDINGS: 1. Subtle areas of urethral stricture along the penile and bulbar urethra; however, nonobstructing. scope was maneuvered. Subsequent staging after scope passed demonstrated no significant obstructing stricture persistent. 2. Moderate BPH, with early component of median lobe, intravesical component is very small. 3. UOs are about 3 to 4 mm proximal to the bladder neck, not associated with median lobe. 4. Bladder trabeculation. 5. 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 INDICATIONS FOR THE PROCEDURE AND HISTORY: Mr. Covarrubias is a pleasant 65-year-old male with history of elevated PSA, underwent prostate biopsy, negative for malignancy. 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 On evaluation of his CT scan, he was advised regarding ureteroscopy, laser lithotripsy, as he has a very dense stone, more over his body habitus. Risks and complications of the procedure have been discussed with him in detail including, but not limited to: Bleeding, pain, infection, injury to adjacent organs, urosepsis, ureteral/renal/kidney injury, possible secondary procedure given stone nidus, size, density, discussed with him in detail. DESCRIPTION OF PROCEDURE: After an informed consent was signed, the patient was taken to the operating room, placed in a dorsal lithotomy position with the genital area prepped and draped in the usual surgical sterile fashion. A 21-[place] cystoscope was utilized. He does have a long urethra, in the area of the penile urethra, there were subtle areas of early stricture; however, these were non-obstructing, I was able to carefully negotiate the scope beyond this into the prostatic urethra. Restaging ureteroscopy demonstrates no obvious stricture concerning. The prostatic urethra was entered, demonstrating moderate to severe obstruction. There was a component of a very early median lobe component with minimal intravesical median lobe component. The UOs are after reflection of the bladder neck, median lobe, away from the bladder neck about 3 to 4 mm. We performed a retrograde pyelogram, demonstrating complete duplicated system of the right ureter. Two ureteral orifices were identified in the right hemitrigone and retrograde pyelogram confirmed complete duplicated ureter with no filling defect. The left ureter was intubated with a 5-[place] open-ended catheter and a retrograde pyelogram performed, single system ureter; however, in the upper pole, he does have a long infundibular stalk. At this time Sensor wire was placed into the left mid pole at the area of the stone and a [employer] 6 cm 12-[place] balloon dilator was utilized to dilate the intramural ureter. Subsequently, a 10-[place] open-end catheter was passed to the level of the proximal ureter and a second safety wire was placed. navigator was passed to the level of the proximal ureter with minimal resistance. At this time, a flexible ureteroscope was then advanced over the sheath and accessed the collecting system. I was able to find the stone, however, the mid pole stone did also have a calyx with a long infundibulum. Wire was seen adjacent to the stone, stone appeared very large and dense consistent with the CT scan. Due to very dense nature of the stone, we used 273 micron laser fiber at 1.5 joules. The stone was fragmented to multiple stone debris. At the end of the procedure, what remained were tiny dust-like debris and most of the stone debris that were amendable to be basket extracted were extracted. We did spend significant amount of time basket extracting all the stone debris and again what left is likely will pass on its own as they are tiny dust- like debris. We surveyed the ureter, which I did not see any evidence of further ureteral calculi of concern. No gross injury to the ureter was noted. A 6 x 30 double-J ureteral stent was passed with distal tail in situ. Bladder was completely emptied and he tolerated the procedure well. He will follow up with me next , August 31 for cysto, stent pull at 8:15 a.m., he is to have a KUB on August 30 at 9 a.m. If there are no obvious ureteral calculi of concern with improvement of his stone burden, we will perform cysto and stent pull under local. Job ID: [id number] [facility]
[2020-08-31 19:13] LABS: CA Oxalate Dihydrate 10 % (.); CA Oxalate Monohydrate 90 % (.); Color Brown (.); Stone Weight 25 mg (.)
== END 2020-08-23 15:20 | disposition home or self-care (01) ==
LOC: SDC 08:37
PROVIDERS: ATTEND Urology
PROC: 0T778DZ Dilation of Left Ureter with Intraluminal Device, Via Natural or Artificial Opening Endoscopic (ICD-10-PCS; principal; 2020-08-23)
PROC: 0TC48ZZ Extirpation of Matter from Left Kidney Pelvis, Via Natural or Artificial Opening Endoscopic (ICD-10-PCS; principal; 2020-08-23)
DX: N20.0 Calculus of kidney (principal); Q62.5 Duplication of ureter; N40.1 Benign prostatic hyperplasia with lower urinary tract symptoms; R35.1 Nocturia; E66.01 Morbid (severe) obesity due to excess calories; E11.9 Type 2 diabetes mellitus without complications; I10 Essential (primary) hypertension; M10.9 Gout, unspecified; F17.210 Nicotine dependence, cigarettes, uncomplicated; Z68.35 Body mass index [BMI] 35.0-35.9, adult; Z79.82 Long term (current) use of aspirin; Z79.899 Other long term (current) drug therapy
CPT/HCPCS: 74420; 82365; 88300; J1100; J1885; J1956; J2405; J2704; J3010; J3490

== ENCOUNTER 2020-08-30 08:51 | Outpatient (CLI) | payer OTHER | END 2020-08-30 08:52 | disposition home or self-care (01) | LOC: BICRAD 08:51 | PROVIDERS: ATTEND Urology | DX: N20.0 Calculus of kidney (principal) | CPT/HCPCS: 74018 ==

== ENCOUNTER 2020-11-23 14:01 | Outpatient (CLI) | payer MEDICARE, OTHER | END 2020-11-23 14:02 | disposition home or self-care (01) | LOC: BICULT 14:01 | PROVIDERS: ATTEND Urology | DX: N20.0 Calculus of kidney (principal); N28.1 Cyst of kidney, acquired; N40.0 Benign prostatic hyperplasia without lower urinary tract symptoms | CPT/HCPCS: 76770 ==

== ENCOUNTER 2020-12-12 08:18 | Outpatient (CLI) | payer MEDICARE, OTHER | END 2020-12-12 08:19 | disposition home or self-care (01) | LOC: BICCT 08:18 | PROVIDERS: ATTEND Urology | DX: N20.0 Calculus of kidney (principal) | CPT/HCPCS: 74176 ==

== ENCOUNTER 2021-01-19 11:05 | Outpatient (CLI) | payer MEDICARE, OTHER | END 2021-01-19 11:06 | disposition home or self-care (01) | LOC: BICCT 11:05 | PROVIDERS: ATTEND Family Medicine | DX: Z12.2 Encounter for screening for malignant neoplasm of respiratory organs (principal); F17.210 Nicotine dependence, cigarettes, uncomplicated | CPT/HCPCS: 71271 ==

== ENCOUNTER 2021-03-28 09:40 | Outpatient (CLI) | payer MEDICARE, OTHER | END 2021-03-28 09:41 | disposition home or self-care (01) | LOC: BICRAD 09:40 | PROVIDERS: ATTEND Urology | DX: N20.0 Calculus of kidney (principal) | CPT/HCPCS: 74018 ==

== ENCOUNTER 2021-07-09 08:28 | Outpatient (CLI) | payer MEDICARE, OTHER | END 2021-07-09 08:29 | disposition home or self-care (01) | LOC: BICRAD 08:28 | PROVIDERS: ATTEND Urology | DX: N20.0 Calculus of kidney (principal) | CPT/HCPCS: 74018 ==

== ENCOUNTER 2022-03-08 10:48 | Outpatient (CLI) | payer MEDICARE, OTHER | END 2022-03-08 10:49 | disposition home or self-care (01) | LOC: RAD 10:48 | PROVIDERS: ATTEND Family Medicine | DX: M25.522 Pain in left elbow (principal); M19.022 Primary osteoarthritis, left elbow ==

== ENCOUNTER 2022-06-27 13:22 | Outpatient (CLI) | payer MEDICARE, OTHER ==
[2022-06-27 14:03] LABS: #Eosinphils 0.2 10x3/uL (0.0-0.5); #Monocytes 0.6 10x3/uL (0.0-1.1); #Neutrophils 4.4 10x3/uL (1.5-8.4); %Basophils 0.4 % (0.0-2.0); %Lymphocytes 29.6 % (18.0-47.0); %Monocytes 8.7 % (0.0-10.0); Hemoglobin 12.7 g/dL (13.5-17.5); Mean Corpuscular HGB CONC 33.6 g/dL (32.0-36.0); Mean Corpuscular Hemoglobin 29.1 pg (27.0-33.0); Mean Corpuscular Volume 86.7 fl (81.2-95.1); Mean Platelet Volume 10.2 fl (7.4-10.4); Platelet Count 219 10x3/uL (150-450); RBC Distribution Width 15.3 % (11.5-14.5); Red Blood Cell (RBC) Count 4.36 10x6/uL (4.32-5.72); White Blood Cell (WBC) Count 7.4 10x3/uL (3.5-10.5)
[2022-06-27 14:10] LABS: Anion Gap 12 mmol/L (10-20); BUN (Urea Nitrogen) 11 mg/dL (8.4-25.7); Calc. Creatinine Clearance 0 mL/min (70-130); Calcium 9.5 mg/dL (7.8-10.44); Carbon Dioxide 27 mmol/L (23-31); Chloride 107 mmol/L (98-107); Estimated GFR 85; Glucose 99 mg/dL (80-115); Potassium 4.1 mmol/L (3.5-5.1); Sodium 142 mmol/L (136-145)
[2022-06-27 16:59] LABS: Hemoglobin A1c 5.5 % (4.0-6.0)
== END 2022-06-27 13:23 | disposition home or self-care (01) ==
LOC: LABBT 13:22
PROVIDERS: ATTEND Surgery
DX: Z01.818 Encounter for other preprocedural examination (principal); C18.7 Malignant neoplasm of sigmoid colon
CPT/HCPCS: 80048; 83036; 85025; 93005; 93010

== ENCOUNTER 2022-08-01 06:03 | Day surgery (SDC) | payer MEDICARE, OTHER ==
[2022-07-30 13:47] VITALS: BMI 34.7
[2022-08-01] MEDS ORDERED: fentaNYL PF 100 MCG/2 ML SYRINGE ONE (06:41)
[2022-08-01] MEDS ORDERED: Lidocaine 2% PF 5 ML VIAL ONE (06:51)
[2022-08-01] MEDS ORDERED: Bupivacaine/Epinephrine 0.25% 30 ML VIAL ONE (06:51)
[2022-08-01] MEDS ORDERED: Propofol 500 MG/50 ML VIAL ONE (06:52)
[2022-08-01] MEDS ORDERED: CEFAZOLIN 2 GM VIAL ONE (07:19)
[2022-08-01] MEDS ORDERED: Sodium Chloride 0.9% 100 ML ONE (07:19)
[2022-08-01] MEDS ORDERED: Lidocaine 2% 6 ML SYR ONE (07:34)
[2022-08-01] MEDS ORDERED: PROPOFOL 200 MG/20 ML VIAL ONE (07:36)
[2022-08-01] MEDS ORDERED: Dexamethasone 20 MG/5 ML VIAL ONE (07:36)
[2022-08-01] MEDS ORDERED: Ondansetron PF 4 MG/2 ML Vial ONE (07:36)
[2022-08-01] MEDS ORDERED: PHENYLEPHRINE-NS 100 MCG/ML 10 ML SYRINGE ONE (07:36)
== END 2022-08-01 09:55 | disposition home or self-care (01) ==
LOC: SDC 06:03
PROVIDERS: ATTEND Surgery
PROC: 0JH60WZ Insertion of Totally Implantable Vascular Access Device into Chest Subcutaneous Tissue and Fascia, Open Approach (ICD-10-PCS; principal; 2022-08-01)
PROC: 02HV33Z Insertion of Infusion Device into Superior Vena Cava, Percutaneous Approach (ICD-10-PCS; 2022-08-01)
DX: C18.7 Malignant neoplasm of sigmoid colon (principal); E11.9 Type 2 diabetes mellitus without complications; I10 Essential (primary) hypertension; M10.9 Gout, unspecified; N40.0 Benign prostatic hyperplasia without lower urinary tract symptoms; N52.9 Male erectile dysfunction, unspecified; F17.210 Nicotine dependence, cigarettes, uncomplicated; Z79.82 Long term (current) use of aspirin; Z79.899 Other long term (current) drug therapy; Z90.49 Acquired absence of other specified parts of digestive tract
CPT/HCPCS: 36561; 71045; C1788; J1100; J1642; J2001; J2405; J2704; J3490

== ENCOUNTER 2023-03-19 09:07 | Outpatient (CLI) | payer MEDICARE, OTHER ==
[2023-03-19] MEDS ORDERED: Iopamidol 370 76% 100 ML VIAL ONE (09:17)
== END 2023-03-19 09:08 | disposition home or self-care (01) ==
LOC: CT 09:07
PROVIDERS: ATTEND Internal Medicine
DX: C18.9 Malignant neoplasm of colon, unspecified (principal); N20.0 Calculus of kidney; N28.1 Cyst of kidney, acquired; D18.03 Hemangioma of intra-abdominal structures; K63.89 Other specified diseases of intestine
CPT/HCPCS: 71260; 74177; 82565; Q9967

== ENCOUNTER 2023-08-29 10:07 | Outpatient (CLI) | payer MEDICARE, OTHER | END 2023-08-29 10:08 | disposition home or self-care (01) | LOC: BICULT 10:07 | PROVIDERS: ATTEND Urology | DX: N20.0 Calculus of kidney (principal); N40.0 Benign prostatic hyperplasia without lower urinary tract symptoms | CPT/HCPCS: 74018; 76770 ==

== ENCOUNTER 2023-09-04 07:29 | Outpatient (CLI) | payer MEDICARE, OTHER | END 2023-09-04 07:30 | disposition home or self-care (01) | LOC: CT 07:29 | PROVIDERS: ATTEND Internal Medicine | DX: C18.7 Malignant neoplasm of sigmoid colon (principal); N20.0 Calculus of kidney; N28.1 Cyst of kidney, acquired; M89.9 Disorder of bone, unspecified; D18.03 Hemangioma of intra-abdominal structures; Z98.890 Other specified postprocedural states | CPT/HCPCS: 71260; 74177 ==

== ENCOUNTER 2024-04-12 10:15 | Outpatient (CLI) | payer MEDICARE, OTHER | END 2024-04-12 10:16 | disposition home or self-care (01) | LOC: ULT 10:15 | PROVIDERS: ATTEND Urology | DX: N20.0 Calculus of kidney (principal); N40.1 Benign prostatic hyperplasia with lower urinary tract symptoms; N28.1 Cyst of kidney, acquired | CPT/HCPCS: 76770 ==

== ENCOUNTER 2024-07-16 09:33 | Outpatient (CLI) | payer OTHER ==
[2024-07-16] MEDS ORDERED: Iopamidol 370 76% 100 ML VIAL ONE (15:25)
== END 2024-07-16 09:34 | disposition home or self-care (01) ==
LOC: BICCT 09:33
PROVIDERS: ATTEND Internal Medicine
DX: C18.7 Malignant neoplasm of sigmoid colon (principal)
CPT/HCPCS: 71260; 74177; Q9967